=== PATIENT | male | born 1985 | race African-American/Black ===

== ENCOUNTER → 2020-01-29 | Emergency (ER) | payer MEDICAID, OTHER ==
[~2020-01-29] VITALS: Ht 175.3 cm; Wt 81.6 kg
[2020-01-29 12:47] VITALS: BP 151/98
== END | disposition home or self-care (01) ==
LOC: ER 12:45
DX: T14.8XXA Other injury of unspecified body region, initial encounter (principal); V89.2XXA Person injured in unspecified motor-vehicle accident, traffic, initial encounter; Y93.89 Activity, other specified; Y92.410 Unspecified street and highway as the place of occurrence of the external cause; Y99.8 Other external cause status